=== PATIENT | male | born 1965 | race Caucasian/White ===

== ENCOUNTER → 2020-05-07 01:58 | Outpatient (CLI) | payer BC, SELFPAY ==
[2020-05-07 19:28] LABS: SARS-CoV-2 RNA PCR Negative
== END ==
PROVIDERS: PCP Family Medicine; Visit Provider Internal Medicine Gastroenterology
DX: Z01.812 Encounter for preprocedural laboratory examination (principal); Z20.822 Contact with and (suspected) exposure to COVID-19
CPT/HCPCS: C9803; U0003; U0005

== ENCOUNTER 2020-05-10 01:49 | Day surgery (SDC) | payer BC, SELFPAY ==
[2020-04-28 13:09] VITALS: BMI 27.6
[2020-05-10 09:45] VITALS: BP 143/88; PULSE 77; RESP 16; TEMP 36.7; O2SAT 95
[2020-05-10] MEDS: LACTATED RINGERS 1,000 ML 150 ML IV CONT (09:48)
--- NOTE | 2020-05-10 10:21 | WPDANESEPPF ---
Anes - Initial Pre Proc Eval Procedure: Operation Date: 05/10/20 11:00 Proposed Procedures p Screening Colonoscopy - Maximino Brownlee MD Date/Time: 05/10/20 10:21 Surgeon: Maximino Brownlee MD Pre Op Diagnosis: neoplasm screening Patient Data Age: 55 Gender: M Height: 5 ft 9 in Weight: 82.2 kg Last Vital Signs Temp 98.1 F 05/10/20 09:45 Pulse 77 05/10/20 09:45 Resp 16 05/10/20 09:45 BP 143/88 H 05/10/20 09:45 Pulse Ox 95 05/10/20 09:45 Allergies Allergy/AdvReac Type Severity Reaction Status Date / Time niacin Allergy Unknown Flushing Verified 05/10/20 09:43 Penicillins Allergy Unknown Skin Verified 05/10/20 09:43 Reaction Home Medications Medication Instructions Recorded Confirmed Type cetirizine 10 mg capsule 10 mg PO DAILY 03/18/19 04/28/20 History pantoprazole 20 mg tablet,delayed 20 mg PO QAM 03/18/19 04/28/20 History release atorvastatin 20 mg tablet 20 mg PO DAILY #90 tablet 09/15/19 04/28/20 Rx cholecalciferol (vitamin D3) 75 mcg PO DAILY 04/28/20 04/28/20 History lisinopril-hydrochlorothiazide 0.5 tablet PO DAILY 04/28/20 04/28/20 History multivit with min-folic acid 1 tablet PO DAILY 04/28/20 04/28/20 History [Multivitamin Gummies] Patient hx anesthesia problems: none Family hx anesthesia problems: none PMFSH Past Medical History Medical History (Updated 05/10/20 @ 10:20 by Valdemar Tesfaye MD) Atypical chest pain thinks stress related; will have stress test in 4 days BMI 29.0-29.9,adult Essential (primary) hypertension Fracture of head of left femur Gastro-esophageal reflux disease with esophagitis Mixed hyperlipidemia Stomach ulcer Family History Family History Mother Hypertension Family history of elevated blood lipids Family history of hepatitis Diabetes mellitus Family history of kidney disease Family history of malignant neoplasm of breast in first degree relative Father Family history of elevated blood lipids Family history of cardiovascular disease Carcinoma of colon Hypertension Acute myocardial infarction Grandparent Diabetes mellitus Social History Social History Smoking status: Never smoker Alcohol intake: current Drinks per week: 5 Alcohol use details: infrequent alcohol consumption Living arrangements: with family Additional living arrangements comments: - Taylor, Daughter- Dayami 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 Gender identity (if verbalized by the patient): Male Spiritual care concerns: No Anes - Eval Final PreProcedure Day of Procedure 05/10/20 10:21 Patient weight: overweight Heart: regular rate and rhythm Lungs: clear to auscultation Airway: Mallampati scale class II Neurological: alert and oriented Last oral intake: >/= 8 hours ASA classification: III Emergent: no Anesthetic plan: proceed Anesthesia type and monitoring: general GIVS and standard monitoring Informed Consent: The patient's anesthetic plan and its attendant risks and benefits were discussed with the patient/family/POA. Questions were solicited and answers provided to the satisfaction of the patient/family/POA.
--- NOTE | 2020-05-10 11:11 | PM.HPGS ---
History of Present Illness History of Present Illness Consent: Risks, benefits, and alternatives have been discussed and questions answered. Patient agrees to proceed with procedure. Chief complaint: neoplasm screening Narrative: Bony Cee is a 55 year old male here for colon cancer screening. Several years ago he had a polyp removed Review of Systems Review of Systems: All systems reviewed & are unremarkable except as noted in HPI and below PMFSH Past Medical History Medical History Atypical chest pain thinks stress related; will have stress test in 4 days BMI 29.0-29.9,adult Essential (primary) hypertension Fracture of head of left femur Gastro-esophageal reflux disease with esophagitis Mixed hyperlipidemia Stomach ulcer Family History Family History Mother Hypertension Family history of elevated blood lipids Family history of hepatitis Diabetes mellitus Family history of kidney disease Family history of malignant neoplasm of breast in first degree relative Father Family history of elevated blood lipids Family history of cardiovascular disease Carcinoma of colon Hypertension Acute myocardial infarction Grandparent Diabetes mellitus Social History Social History Smoking status: Never smoker Alcohol intake: current Drinks per week: 5 Alcohol use details: infrequent alcohol consumption Living arrangements: with family Additional living arrangements comments: - Taylor, Daughter- Dayami 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 Gender identity (if verbalized by the patient): Male Spiritual care concerns: No Meds Home Medications and Allergies Home Medications Medication Instructions Recorded Confirmed Type cetirizine 10 mg capsule 10 mg PO DAILY 03/18/19 04/28/20 History pantoprazole 20 mg tablet,delayed 20 mg PO QAM 03/18/19 04/28/20 History release atorvastatin 20 mg tablet 20 mg PO DAILY #90 tablet 09/15/19 04/28/20 Rx cholecalciferol (vitamin D3) 75 mcg PO DAILY 04/28/20 04/28/20 History lisinopril-hydrochlorothiazide 0.5 tablet PO DAILY 04/28/20 04/28/20 History multivit with min-folic acid 1 tablet PO DAILY 04/28/20 04/28/20 History [Multivitamin Gummies] Allergies Allergy/AdvReac Type Severity Reaction Status Date / Time niacin Allergy Unknown Flushing Verified 05/10/20 09:43 Penicillins Allergy Unknown Skin Verified 05/10/20 09:43 Reaction Vital Signs Vital Signs - 24 hr 05/10/20 09:45 Temperature 36.7 C Pulse Rate 77 Respiratory Rate 16 Blood Pressure 143/88 H Pulse Oximetry 95 Exam Resp: Auscultation: clear to auscultation bilaterally Cardio: Rate: regular rate Rhythm: regular rhythm GI: GI Palp: Yes Soft to palpation and No Tenderness to palpation present (GI) Assessment and Plan Assessment and plan (1) Colon cancer screening: Code(s): Z12.11 - Encounter for screening for malignant neoplasm of colon Status: Acute Assessment and Plan: Colonoscopy with possible biopsy or polypectomy or cautery or injection of substances.
[2020-05-10 11:30] VITALS: BP 113/72; PULSE 67; RESP 16; O2SAT 94
[2020-05-10 11:40] VITALS: BP 148/88; PULSE 67; RESP 16; O2SAT 96
[2020-05-10 11:50] VITALS: BP 136/90; PULSE 66; RESP 20; O2SAT 99
== END 2020-05-10 12:06 | disposition home or self-care (01) ==
PROVIDERS: PCP Family Medicine; Visit Provider Internal Medicine Gastroenterology
PROC: 0DJD8ZZ Inspection of Lower Intestinal Tract, Via Natural or Artificial Opening Endoscopic (ICD-10-PCS; CPT 45378; principal; 2020-05-10 11:00)
DX: Z12.11 Encounter for screening for malignant neoplasm of colon (principal); Z86.010 Personal history of colon polyps; K57.30 Diverticulosis of large intestine without perforation or abscess without bleeding; I10 Essential (primary) hypertension; E78.2 Mixed hyperlipidemia; Z87.11 Personal history of peptic ulcer disease
CPT/HCPCS: 45378; J2704; J7120

== ENCOUNTER 2020-06-21 08:46 | Outpatient (CLI) | payer BC, SELFPAY ==
--- NOTE | 2020-07-05 11:48 | WPDHOMESLEEP ---
Sleep Study - Home Unattended Date of Study: 06/21/20 Ordering Provider: Hair Huber PA-C Interpreting Provider: Isa Davis MD Home Sleep Study Type: Apnea Link Air Height: 1.75 m Weight: 79.379 kg Body Mass Index: 25.8 Neck Circumference (inches): 14.5 Ideal: 8 Reason for Sleep Study Excessive sleepiness, especially in the evening, around 8 pm Sleep History Bony Cee is a 55-year-old man who occasionally snores ,and occasionally his snoring s loud enough that others complain about it. 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 He does not awaken at night with heartburn, belching or coughing. He does not awaken from sleep feeling short of breath. He does not have difficulty sleeping with a cold. He denies waking up gasping for breath at night. He occasionally has breathing problems at night observed by others. He does not sweat excessively at night or notice his heart pounding or beating irregularly at night. He rarely falls asleep during the day. He does not fall asleep involuntarily. He does not fall asleep while driving the car. He does not have loss of muscle tone with strong emotion. He does not have daytime difficulties due to excessive sleepiness. 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 He does not feel paralyzed on waking or falling asleep. He does not have vivid dreamlike scenes upon awakening or falling asleep. He does not feel afraid to go to sleep. He denies having nightmares. He occasionally remembers his dreams. He occasionally has racing thoughts. He does not feel sad or depressed. He rarely has anxiety. He does not have muscular tension. He does not notice part of his body jerking. He does not kick at night or have crawling or aching feelings in his legs. He does not have any kind of leg pain at night. He does not have morning jaw pain. He denies grinding his teeth during sleep. He is not bothered by pain during the day and is not awakened by pain at night. He does not wake up feeling stiff in the morning with sore achy muscles or pain in the neck and spine. He has fatigue in the evening only. Normal bedtime 10:30 p.m. falling asleep within 15 minutes, waking once at night to go to the bathroom. He stays awake for an hour or less. He wakes the morning at 5:00 a.m.. On the weekend, his schedule is the same. He estimates getting 6-7 hours of sleep at night. He sometimes takes a nap in the afternoon or evening. He sometimes feels refreshed after a 10 or 15 minute nap. Habits: Never smoked tobacco. No caffeine. Alcohol 2 or 3 beverages per week. [facility] Past Medical History Medical History Atypical chest pain thinks stress related; will have stress test in 4 days BMI 29.0-29.9,adult Essential (primary) hypertension Fracture of head of left femur Gastro-esophageal reflux disease with esophagitis Mixed hyperlipidemia Stomach ulcer Family History Family History Mother Hypertension Family history of elevated blood lipids Family history of hepatitis Diabetes mellitus Family history of kidney disease Family history of malignant neoplasm of breast in first degree relative Father Family history of elevated blood lipids Family history of cardiovascular disease Carcinoma of colon Hypertension Acute myocardial infarction Grandparent Diabetes mellitus Social History Social History Smoking status: Never smoker Alcohol intake: current Drinks per week: 5 Additional living arrangements comments: - Taylor, Daughter- Dayami 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 Gender identity (if verbalized by the patient): Male Spiritual care concerns: No Medications Home Medications Medication Instructions Recorded Confirmed Type cetirizine 10 m
[2020-07-05 11:58] VITALS: BMI 25.8
== END 2020-06-21 08:47 | disposition home or self-care (01) ==
LOC: ANHCSM 08:46
PROVIDERS: PCP Family Medicine; Visit Provider Physician Assistant
DX: G47.33 Obstructive sleep apnea (adult) (pediatric) (principal); G47.36 Sleep related hypoventilation in conditions classified elsewhere
CPT/HCPCS: 95806

== ENCOUNTER → 2020-07-21 00:47 | Outpatient (CLI) | payer BC, SELFPAY ==
[2020-07-21 17:41] LABS: SARS-CoV-2 RNA PCR Negative
== END ==
PROVIDERS: PCP Family Medicine; Visit Provider Internal Medicine Critical Care Medicine
DX: Z20.822 Contact with and (suspected) exposure to COVID-19 (principal)
CPT/HCPCS: C9803; U0003; U0005

== ENCOUNTER → 2020-08-10 02:22 | Outpatient (CLI) | payer BC, SELFPAY ==
[2020-08-12 08:32] LABS: SARS-CoV-2 RNA PCR Negative
== END ==
PROVIDERS: PCP Family Medicine; Visit Provider Internal Medicine Critical Care Medicine
DX: Z01.812 Encounter for preprocedural laboratory examination (principal); Z20.822 Contact with and (suspected) exposure to COVID-19
CPT/HCPCS: C9803; U0003; U0005

== ENCOUNTER → 2020-08-13 | Outpatient (CLI) | payer BC, SELFPAY ==
[2020-09-06 08:56] VITALS: BMI 25.8
--- NOTE | 2020-09-06 08:56 | WPDSLEEPSTUD ---
Sleep Study Date of Study: 08/13/20 Ordering Provider: Chase Ferguson MD Interpreting Physician: Isa Davis MD Sleep Study Type: CPAP Titration Height: 1.75 m Weight: 79.379 kg Body Mass Index: 25.8 Neck Circumference (inches): 16.5 Reason for Sleep Study This home sleep test using apnea link June 21, 2020 shows moderate sleep disordered breathing with an apnea-hypopnea index of 21, majority of the apneas were obstructive 76%, desaturation to 85% and 2 minutes spent below 88% with snoring. He had 21% of the apneas scored as central, 9 apneas total. He presents for a CPAP titration. Sleep History Bony Cee is a 55-year-old man who occasionally snores ,and occasionally his snoring s loud enough that others complain about it. He often falss asleep by 8:30 p.m. 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 He does not awaken at night with heartburn, belching or coughing. He does not awaken from sleep feeling short of breath. He does not have difficulty sleeping with a cold. He denies waking up gasping for breath at night. He occasionally has breathing problems at night observed by others. He does not sweat excessively at night or notice his heart pounding or beating irregularly at night. He rarely falls asleep during the day. He does not fall asleep involuntarily. He does not fall asleep while driving the car. He does not have loss of muscle tone with strong emotion. He does not have daytime difficulties due to excessive sleepiness. 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 He does not feel paralyzed on waking or falling asleep. He does not have vivid dreamlike scenes upon awakening or falling asleep. He does not feel afraid to go to sleep. He denies having nightmares. He occasionally remembers his dreams. He occasionally has racing thoughts. He does not feel sad or depressed. He rarely has anxiety. He does not have muscular tension. He does not notice part of his body jerking. He does not kick at night or have crawling or aching feelings in his legs. He does not have any kind of leg pain at night. He does not have morning jaw pain. He denies grinding his teeth during sleep. He is not bothered by pain during the day and is not awakened by pain at night. He does not wake up feeling stiff in the morning with sore achy muscles or pain in the neck and spine. He has fatigue in the evening only. Normal bedtime 10:30 p.m. falling asleep within 15 minutes, waking once at night to go to the bathroom. He stays awake for an hour or less. He wakes the morning at 5:00 a.m.. On the weekend, his schedule is the same. He estimates getting 6-7 hours of sleep at night. He sometimes takes a nap in the afternoon or evening. He sometimes feels refreshed after a 10 or 15 minute nap. Habits: Never smoked tobacco. No caffeine. Alcohol 2 or 3 beverages per week. [facility] Past Medical History Medical History (Updated 09/06/20 @ 09:14 by Isa Davis MD) Atypical chest pain thinks stress related; will have stress test in 4 days BMI 29.0-29.9,adult Essential (primary) hypertension Fracture of head of left femur Gastro-esophageal reflux disease with esophagitis Left hip pain Mixed hyperlipidemia Stomach ulcer Family History Family History Mother Hypertension Family history of elevated blood lipids Family history of hepatitis Diabetes mellitus Family history of kidney disease Family history of malignant neoplasm of breast in first degree relative Father Family history of elevated blood lipids Family history of cardiovascular disease Carcinoma of colon Hypertension Acute myocardial infarction Grandparent Diabetes mellitus Social History Social History Alcohol intake: current Drinks per week: 5 Alcohol use details: infrequent alcohol consumption Additional living arrangements comments: - K
== END | disposition home or self-care (01) ==
PROVIDERS: PCP Family Medicine; Visit Provider Family Medicine
DX: G47.33 Obstructive sleep apnea (adult) (pediatric) (principal)
CPT/HCPCS: 95811

== ENCOUNTER 2020-09-07 13:36 | Outpatient (CLI) | payer BC, OTHER, SELFPAY ==
--- NOTE | ~2020-09-07 | XR_ITS ---
EXAMINATION: XR lg joint inject/asp w image DATE: 09/07/2020 14:18 INDICATION: Left hip pain TECHNIQUE: A time-out was performed to verify the patient's name, date of , and procedure to b e performed. The procedure including the risks, benefits, and alternatives was discussed with the pat ient. Risks discussed included bleeding and infection. The patient understood the risks and agreed to proceed. The skin overlying the left hip joint was prepped and draped in usual sterile fashion. An esthetic was administered with 1% lidocaine subcutaneously. A 22 G needle was advanced under fluoros copic guidance into the joint. Injection of 1 mL of Omnipaque 240 confirmed intra-articular position of the needle. Subsequently, injectate consisting of left hip was instilled. Washout of contrast wa s seen confirming intra-articular administration. The needle was removed and the entry site was clean ed and dressed. There were no immediate complications. Fluoroscopy exposure time was 2.1 minutes. Th e total number of images was 2. Total DAP was 0.453 mGycm^2 FINDINGS: Real-time fluoroscopy demonstrates the needle in the left hip joint. Patient's pain prior t o procedure:04/28. Patient's pain following the procedure: 03/31. IMPRESSION: 1. Left hip injection of local anesthetic and steroid with decrease in the patient's presenting pain. Reviewed, dictated and finalized at location A. IMPRESSION: 1. Left hip injection of local anesthetic and steroid with decrease in the florentino ent's presenting pain.
== END 2020-09-07 13:37 | disposition home or self-care (01) ==
PROVIDERS: PCP Family Medicine; Visit Provider Orthopaedic Surgery
DX: M25.552 Pain in left hip (principal)
CPT/HCPCS: 20610; 77002; J3301; Q9966

== ENCOUNTER → 2020-12-29 09:22 | Outpatient (CLI) | payer BC, SELFPAY ==
[2020-12-29 18:11] LABS: SARS-CoV-2 RNA PCR Positive
== END ==
PROVIDERS: PCP Family Medicine; Visit Provider Family Medicine
DX: U07.1 COVID-19 (principal)
CPT/HCPCS: C9803; U0003; U0005

== ENCOUNTER 2021-11-05 08:40 | Emergency (ER) | payer BC, SELFPAY ==
--- NOTE | ~2021-11-05 | CT_ITS ---
EXAMINATION: CT cervical spine wo con DATE: 11/05/2021 09:48 INDICATION: Left neck pain radiating down the arm. TECHNIQUE: Computed tomography (CT) of the cervical spine was performed without intravenous contrast. Automated exposure control and iterative reconstruction technique were employed. The dose-length pro duct was 484.48 mGy-cm. COMPARISON: None FINDINGS: There is 9 degrees levocurvature of cervicothoracic spine. There is hypolordosis of cervica l spine. Vertebral body heights are normal. There is mildly decreased disc height at C5-C6 and modera tely decreased disc height at C6-C7. The following disc levels are specifically discussed: C2-C3: There is no uncovertebral joint osteoarthritis. There is severe bilateral facet joint osteoart hritis. There is no neural foraminal stenosis. There is no central canal stenosis. C3-C4: There is mild bilateral uncovertebral joint osteoarthritis. There is moderate right and mild l eft facet joint osteoarthritis. There is mild bilateral neural foraminal stenosis. There is no centra l canal stenosis. C4-C5: There is mild bilateral uncovertebral joint osteoarthritis. There is no facet joint osteoarthr itis. There is no neural foraminal stenosis. There is no central canal stenosis. C5-C6: There is mild bilateral uncovertebral joint osteoarthritis. There is moderate right facet join t osteoarthritis. There is mild bilateral neural foraminal stenosis. There is mild central canal sten osis. C6-C7: There is mild bilateral uncovertebral joint osteoarthritis. There is mild bilateral facet join t osteoarthritis. There is no neural foraminal stenosis. There is mild central canal stenosis. C7-T1: There is no uncovertebral joint osteoarthritis. There is severe right and mild left facet join t osteoarthritis. There is mild right neural foraminal stenosis. There is no central canal stenosis. IMPRESSION: 1. Moderate cervical spondylosis. Reviewed, dictated and finalized at location A.
--- NOTE | ~2021-11-05 | CT_ITS ---
EXAMINATION: CT thoracic spine wo con DATE: 11/05/2021 09:48 INDICATION: Midline back tenderness. TECHNIQUE: Computed tomography (CT) of the thoracic spine was performed without intravenous contrast. Automated exposure control and iterative reconstruction technique were employed. The dose-length pro duct was 1202.24 mGy-cm. COMPARISON: None FINDINGS: A calcified right lung nodule and calcified right hilar lymph nodes are consistent with old granulomatous disease. There is a 3.6 cm cyst in left kidney. There is 4 degrees dextrocurvature of upper thoracic spine. There is mild chronic anterior wedging of T11 and T12 vertebral bodies. Interve rtebral disc heights are normal. There are endplate osteophytes at most levels. There is multilevel m ild facet joint osteoarthritis. On the right, there is moderate facet joint osteoarthritis at T2-T3. On the right, there is mild neural foraminal stenosis at T1-T2 and moderate neural foraminal stenosis at T2-T3. No central canal stenosis. IMPRESSION: 1. Mild thoracic spondylosis. Reviewed, dictated and finalized at location A.
[2021-11-05 08:46] VITALS: BP 156/86; PULSE 58; RESP 14; TEMP 36.2; O2SAT 97
--- NOTE | 2021-11-05 09:15 | ED.EXTPRO ---
HPI - Extremity Problem General Chief complaint: Extremity Problem,Nontraumatic Stated complaint: Shoulder pain with numbness to left arm Time Seen by Provider: 11/05/21 08:57 Source: patient Mode of arrival: ambulatory Limitations: no limitations History of Present Illness HPI Narrative: Patient is a 56 y/o male who presents to the ED with c/o left upper back/shoulder pain. Patient reports he slept on his left shoulder wrong a few weeks ago. He has had intermittent pain in his left scapular/shoulder/neck region, with tingling down his left arm. He states the pain seems to be worse in the mornings after some sort of identifiable aggravating activity the night before. This morning, he woke up with worsening pain after playing [employer] last night. He tried taking 2 Advil at home without relief, which prompted his presentation. Denies any other direct injury. Pain worse with range of motion of left shoulder and turning head/neck to the left. He denies any focal weakness. Denies numbness. He has been able to use his left arm and hand. Denies dropping things. He denies any chest pain or difficulty breathing. Related Data Home Medications Medication Instructions Recorded Confirmed cetirizine 10 mg capsule (Zyrtec) 10 mg PO DAILY 03/18/19 10/18/21 cholecalciferol (vitamin D3) 75 75 mcg PO DAILY 04/28/20 10/18/21 mcg (3,000 unit) tablet multivitamin with minerals-folic 1 tablet PO DAILY 04/28/20 10/18/21 acid 200 mcg chewable tablet (Multivitamin Gummies) Allergies Allergy/AdvReac Type Severity Reaction Status Date / Time niacin Allergy Unknown Flushing Verified 10/18/21 14:55 Penicillins Allergy Unknown Skin Verified 10/18/21 14:55 Reaction Review of Systems Review of Systems: CONSTITUTIONAL: Denies fever, chills, or sweats. CARDIOVASCULAR: Denies chest pain. RESPIRATORY: Denies cough or dyspnea. GASTROINTESTINAL: Denies abdominal pain, nausea, vomiting. MUSCULOSKELETAL: Reports left-sided neck/shoulder/upper back pain. NEUROLOGIC: Reports tingling down LUE. Denies numbness or focal weakness. All systems reviewed & are unremarkable except as noted in HPI and below PMFSH Past Medical History Medical History Arthritis of left hip Atypical chest pain thinks stress related; will have stress test in 4 days BMI 29.0-29.9,adult Essential (primary) hypertension Fracture of head of left femur Gastro-esophageal reflux disease with esophagitis Left hip pain Mixed hyperlipidemia Stomach ulcer Surgical History Surgical History History of colonoscopy Family History Family History Mother Hypertension Family history of elevated blood lipids Family history of hepatitis Diabetes mellitus Family history of kidney disease Family history of malignant neoplasm of breast in first degree relative Father Family history of elevated blood lipids Family history of cardiovascular disease Carcinoma of colon Hypertension Acute myocardial infarction Grandparent Diabetes mellitus Social History Social History Smoking status: Never smoker Alcohol intake: current Drinks per week: 5 Alcohol use details: infrequent alcohol consumption Additional living arrangements comments: - Taylor, Daughter- Dayami 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 Gender identity (if verbalized by the patient): Male Spiritual care concerns: No Exam Narrative: GENERAL: Well appearing, well-nourished, non-toxic, in no acute distress. HEAD: Normocephalic, atraumatic. EYES: PERRL/EOMI, conjunctivae clear bilaterally. No nystagmus. NECK: Supple. No adenopathy, no masses. No significant midline cervical spinal tenderness. Tenderness along L scot
--- NOTE | 2021-11-05 09:17 | ECG_ITS ---
Measurements Intervals [place] Rate: 58 P: 6 CT: 147 QRS: -15 QRSD: 102 T: 14 QT: 409 QTc: 404 Interpretive Statements SINUS BRADYCARDIA CONSIDER INFERIOR INFARCT, AGE INDETERMINATE ABNORMAL ECG NO PREVIOUS ECG AVAILABLE FOR COMPARISON Electronically Signed On 11-05-2021 10:19:12 CDT by Hernan Olivia D.O.
== END 2021-11-05 11:47 | disposition home or self-care (01) ==
PROVIDERS: Emergency Provider General Practice; PCP Emergency Medicine
DX: M54.12 Radiculopathy, cervical region (principal); I10 Essential (primary) hypertension; E78.2 Mixed hyperlipidemia; K21.9 Gastro-esophageal reflux disease without esophagitis
CPT/HCPCS: 72125; 72128; 93005; 99284

== ENCOUNTER 2021-11-21 10:21 | Outpatient (CLI) | payer BC, SELFPAY ==
[2021-11-21 20:09] LABS: LDL Cholesterol Direct 106 mg/dL
[2021-11-21 20:14] LABS: Alanine Aminotransferase 43 U/L (6-50); Albumin Level 4.4 g/dL (3.5-5.1); Alkaline Phosphatase 86 U/L (38-126); Anion Gap 10 mmol/L (8-16); Aspartate Amino Transferase 43 U/L (17-59); Bilirubin,Total 0.9 mg/dL (0.2-1.3); Blood Urea Nitrogen 20 mg/dL (9-20); Calcium 9.2 mg/dL (8.4-10.2); Carbon Dioxide 27 mmol/L (22-30); Chloride 100 mmol/L (98-107); Cholesterol 167 mg/dL (0-200); Estimated Glomerular Filt Rate > 60; Glucose 93 mg/dL (65-110); HDL Direct 42 mg/dL; Potassium 4.2 mmol/L (3.4-5.0); Sodium 137 mmol/L (137-145); Triglycerides 103 mg/dL (<150)
[2021-11-21 21:23] LABS: Hemoglobin A1C 5.2 % (<5.7)
[2021-11-21 21:26] LABS: Basophils Absolute Auto 0.1 K/mm3 (0.0-0.1); Basophils Percent Auto 1.2 % (0.2-1.2); Eosinophils Absolute Auto 0.3 K/mm3 (0-0.3); Eosinophils Percent Auto 3.9 % (0-4.4); Hematocrit 53.7 % (42.0-52.0); Hemoglobin 18.1 g/dL (14.0-18.0); Immature Granulocyte Absolute 0.04 K/mm3 (0.00-0.031); Immature Granulocyte Percent A 0.5 % (0-0.5); Lymphocytes Absolute Auto 1.22 K/mm3 (0.9-3.2); Lymphocytes Percent Auto 16.2 % (18.3-44.2); Mean Corpuscular HGB Conc 33.7 g/dl (32-36); Mean Corpuscular Hemoglobin 31.3 pg (26-34); Mean Corpuscular Volume 92.7 fl (80-100); Monocytes Absolute Auto 0.7 K/mm3 (0.1-0.6); Monocytes Percent Auto 9.3 % (2.6-8.5); Neutrophils Absolute Auto 5.2 K/mm3 (1.3-6.7); Neutrophils Percent Auto 68.9 % (45.5-73.1); Platelet Count Result 227 k/mm3 (150-375); Red Blood Count 5.79 M/mm3 (4.6-6.20); Red Cell Distribution Width 12.3 % (11.5-14.5); White Blood Count 7.5 K/mm3 (4.5-10.0)
== END 2021-11-21 10:22 | disposition home or self-care (01) ==
LOC: ANHGOSHLAB 10:22
PROVIDERS: PCP Family Medicine; Visit Provider Physician Assistant
DX: E78.5 Hyperlipidemia, unspecified (principal); G47.23 Circadian rhythm sleep disorder, irregular sleep wake type; Z79.899 Other long term (current) drug therapy; K21.9 Gastro-esophageal reflux disease without esophagitis; E16.2 Hypoglycemia, unspecified; Z12.5 Encounter for screening for malignant neoplasm of prostate
CPT/HCPCS: 36415; 80053; 80061; 83036; 84153; 84443; 85025; G0103

== ENCOUNTER → 2021-11-21 14:56 | Outpatient (CLI) | payer BC, SELFPAY ==
--- NOTE | ~2021-11-21 | MR_ITS ---
EXAMINATION: MR cervical spine wo con DATE: 11/21/2021 15:56 INDICATION: Neck pain. Cervical radiculopathy. Left shoulder and arm numbness. TECHNIQUE: Magnetic resonance imaging (MRI) of the cervical spine was performed without intravenous c ontrast. Sequences included sagittal T2-weighted FSE, sagittal T2-weighted FS FSE, sagittal T1-weight ed FSE, axial MERGE, and axial T2-weighted FSE. COMPARISON: Cervical spine 11/05/2021 FINDINGS: There is 9 degrees levocurvature of cervicothoracic spine. There is mild kyphosis of cervic al spine. Vertebral body heights are normal. There is mildly decreased disc height at C4-C5 and moder ately decreased disc height at C5-C6 and C6-C7. The spinal cord signal intensity is normal. The follo wing disc levels are specifically discussed: C2-C3: The disc does not extend beyond the endplate margin. There is no uncovertebral joint osteoarth ritis. There is moderate bilateral facet joint osteoarthritis. There is mild bilateral neural foramin al stenosis. There is no central canal stenosis. C3-C4: The disc does not extend beyond the endplate margin. There is no uncovertebral joint osteoarth ritis. There is moderate bilateral facet joint osteoarthritis. There is mild bilateral neural foramin al stenosis. There is no central canal stenosis. C4-C5: The disc does not extend beyond the endplate margin. There is mild left uncovertebral joint os teoarthritis. There is mild bilateral facet joint osteoarthritis. There is mild left neural foraminal stenosis. There is no central canal stenosis. C5-C6: The disc is bulging. There is moderate bilateral uncovertebral joint osteoarthritis. There is mild right facet joint osteoarthritis. There is mild bilateral neural foraminal stenosis. There is mi ld central canal stenosis with ventral indentation of the spinal cord. C6-C7: The disc is bulging with superimposed left central and foraminal zone extrusion. There is mild bilateral uncovertebral joint osteoarthritis. There is moderate right and mild left facet joint oste oarthritis. There is mild right and moderate left neural foraminal stenosis. There is mild central ca nal stenosis. There is severe stenosis of left lateral recess. C7-T1: There is a central protrusion. There is no uncovertebral joint osteoarthritis. There is mild b ilateral facet joint osteoarthritis. There is no neural foraminal stenosis. There is no central canal stenosis. IMPRESSION: 1. Moderate cervical spondylosis. Of note, an extrusion at C6-C7 causes severe stenosis of left later al recess and moderate stenosis of left neural foramen. Reviewed, dictated and finalized at location B. IMPRESSION: 1. Moderate cervical spondylosis. Of note, an extrusion at C6-C7 causes severe stenosis of left lateral recess and moderate stenosis of left neural foramen.
== END ==
PROVIDERS: PCP Family Medicine; Visit Provider Family Medicine
DX: M47.23 Other spondylosis with radiculopathy, cervicothoracic region (principal); M48.03 Spinal stenosis, cervicothoracic region
CPT/HCPCS: 72141

== ENCOUNTER 2021-12-01 16:26 | Outpatient (CLI) | payer BC, SELFPAY ==
--- NOTE | ~2021-12-01 | XR_ITS ---
EXAMINATION: XR cervical spine 4-5V DATE: 12/01/2021 16:54 INDICATION: Neck pain. TECHNIQUE: 6 views of cervical spine including flexion and extension views were obtained. COMPARISON: CT cervical spine 11/05/2021 FINDINGS: There is hypolordosis of cervical spine. There is no abnormal motion with flexion or extens ion. There is 6 degrees levocurvature of cervical spine. Vertebral body heights are normal. There is mildly decreased disc height at C5-C6 and moderately decreased disc height at C6-C7. At C5-C6, there is moderate bilateral uncovertebral joint osteoarthritis. There is multilevel mild to moderate facet joint osteoarthritis. There is mild central canal stenosis at C5-C6 and C6-C7. IMPRESSION: 1. Moderate cervical spondylosis. Reviewed, dictated and finalized at location A.
== END 2021-12-01 16:27 | disposition home or self-care (01) ==
LOC: ANHIMG 16:28
PROVIDERS: PCP Family Medicine; Visit Provider Neurological Surgery
DX: M47.812 Spondylosis without myelopathy or radiculopathy, cervical region (principal); M48.02 Spinal stenosis, cervical region
CPT/HCPCS: 72050

== ENCOUNTER 2021-12-21 12:59 | Outpatient (CLI) | payer BC, SELFPAY ==
--- NOTE | 2021-12-21 13:16 | ECG_ITS ---
Measurements Intervals [place] Rate: 77 P: 66 AL: 143 QRS: -5 QRSD: 98 T: 52 QT: 357 QTc: 405 Interpretive Statements SINUS RHYTHM WITH MARKED SINUS ARRHYTHMIA BASELINE WANDER- I, II, V4 BORDERLINE ECG COMPARED TO ECG 11/05/2021 09:58:31 SINUS RHYTHM NOW PRESENT SINUS ARRHYTHMIA NOW PRESENT Electronically Signed On 12-21-2021 13:30:56 CDT by Hernan Olivia D.O.
[2021-12-21 13:20] LABS: Basophils Absolute Auto 0.1 K/mm3 (0.0-0.1); Basophils Percent Auto 1.1 % (0.2-1.2); Hematocrit 48.6 % (42.0-52.0); Immature Granulocyte Absolute 0.38 K/mm3 (0.00-0.031); Lymphocytes Absolute Auto 1.79 K/mm3 (0.9-3.2); Lymphocytes Percent Auto 14.2 % (18.3-44.2); Mean Corpuscular Hemoglobin 31.4 pg (26-34); Mean Corpuscular Volume 89.7 fl (80-100); Monocytes Absolute Auto 0.7 K/mm3 (0.1-0.6); Monocytes Percent Auto 5.9 % (2.6-8.5); Neutrophils Absolute Auto 9.5 K/mm3 (1.3-6.7); Neutrophils Percent Auto 75.8 % (45.5-73.1); Platelet Count Result 299 k/mm3 (150-375); Red Blood Count 5.42 M/mm3 (4.6-6.20); Red Cell Distribution Width 12.9 % (11.5-14.5); White Blood Count 12.6 K/mm3 (4.5-10.0)
[2021-12-21 13:36] LABS: Alanine Aminotransferase 39 U/L (6-50); Albumin Level 4.5 g/dL (3.5-5.1); Alkaline Phosphatase 77 U/L (38-126); Anion Gap 14 mmol/L (8-16); Aspartate Amino Transferase 27 U/L (17-59); Bilirubin,Total 0.8 mg/dL (0.2-1.3); Blood Urea Nitrogen 24 mg/dL (9-20); Calcium 9.4 mg/dL (8.4-10.2); Carbon Dioxide 25 mmol/L (22-30); Chloride 98 mmol/L (98-107); Estimated Glomerular Filt Rate > 60; Glucose 100 mg/dL (65-110); Potassium 3.8 mmol/L (3.4-5.0); Sodium 137 mmol/L (137-145)
== END 2021-12-21 13:00 | disposition home or self-care (01) ==
LOC: ANHLAB 13:00
PROVIDERS: PCP Family Medicine; Visit Provider Neurological Surgery
DX: Z01.818 Encounter for other preprocedural examination (principal); R94.31 Abnormal electrocardiogram [ECG] [EKG]
CPT/HCPCS: 36415; 80053; 85025; 93005

== ENCOUNTER 2021-12-22 09:31 | Outpatient (CLI) | payer BC, SELFPAY ==
[2021-12-22 18:50] LABS: Hematocrit 48.1 % (42.0-52.0); Hemoglobin 15.8 g/dL (14.0-18.0); Mean Corpuscular HGB Conc 32.8 g/dl (32-36); Mean Corpuscular Hemoglobin 30.9 pg (26-34); Mean Corpuscular Volume 93.9 fl (80-100); Mean Platelet Volume 9.3 fl (7.4-10.4); Platelet Count Result 254 k/mm3 (150-375); Red Blood Count 5.12 M/mm3 (4.6-6.20); Red Cell Distribution Width 13.2 % (11.5-14.5); White Blood Count 11.6 K/mm3 (4.5-10.0)
== END 2021-12-22 09:32 | disposition home or self-care (01) ==
LOC: ANHGOSHLAB 09:35
PROVIDERS: PCP Family Medicine; Visit Provider Family Medicine
DX: D75.1 Secondary polycythemia (principal)
CPT/HCPCS: 36415; 85027

== ENCOUNTER 2021-12-28 00:49 | Day surgery (SDC) | payer BC, SELFPAY ==
[2021-12-22 15:11] VITALS: BMI 27.3
--- NOTE | 2021-12-22 15:17 | PC.NURSE ---
Report to the Outpatient Waiting Room, entrance under the green pavilion located off [facility], at time 0600 on date 12/28/21. Planned Procedure Time: 0730. Time changes happen often and if your time is changed the preop area will call you the afternoon before. - You and your visitor will be asked to self-screen and do not enter if you have any COVID symptoms. - We encourage only one visitor and NO visitors under age 16 are allowed at this time. Your visitor will receive communication by the phone number that is given day of service. - The patient visitor is requested to social distance or may leave the building when not with patient due to restrictions. - A mask is OPTIONAL within the hospital. Patients may have clear liquids (water, carbonated beverages, clear teas, apple juice) until 3 hours prior to surgery with a maximum of 20 ounces. - No food from midnight until time of surgery Take the following medications with a SIP of water the morning of surgery: PREDNISONE, GABAPENTIN Medications to discontinue per physician: VITAMINS Date to take last dose: 12/24/21 Please no make-up, nail khmer, hairspray, perfume, deodorant, or body powder the day of surgery. No jewelry (including any body piercings) or valuables the day of surgery, leave them at home. Please take a shower or bath the night before, or the morning of, surgery with an antibacterial soap. Wear comfortable, loose fitting clothing. - Jewelry must be removed prior to entering the operating room. Rings and piercings that are not removed may be cut off. - The hospital will not accept responsibility for valuables. - Please leave all valuables, including medications, at home the day of surgery. If you are going home after surgery, a licensed regional dedicated truck driver must drive you home. - NO public transportation without another adult. - We recommend that an adult stay with you for 24 hours following discharge. - We also recommend that you do not drive, make important decision, drink alcoholic beverages, or take any drugs that were not prescribed by your health care provider for at least 24 hours after your discharge time. Follow any additional instructions given to you from your surgeon. If you or anyone in your household have experienced Covid symptoms in the past week, please notify your surgeon or the nurse liaison at the phone number below for possible testing. Telephone instructions given to PT - DA WILEY and asked if any additional questions and then verbalized understanding. Patient advised to call surgeon office or pre surgery nurse liaison [phone] if any additional questions.
[2021-12-28] VITALS (16 sets, daily range): BP systolic 106–144; BP diastolic 56–82; PULSE 71–111; RESP 12–20; TEMP 36.2–36.6; O2SAT 89–98; BMI 31.8
--- NOTE | ~2021-12-28 | XR_ITS ---
EXAMINATION: XR fluoroscopy no charge DATE: 12/28/2021 7:40 ROBOTICS SYSTEMS ENGINEER INDICATION: CERVICAL DISCECTOMY AND FUSION C5, C6, C7 . TECHNIQUE: 3 fluoroscopic images of the cervical spine were obtained during cervical discectomy and f usion C5-C7 performed by the surgeon. I was not present in the operating room. Fluoroscopy exposure t norma was 22.8 seconds. Air Kerma 3.6139 mGy. DAP 0.0716 mGym2. COMPARISON: X-ray C-spine 12/01/2021 FINDINGS: A temperature probe terminates in the posterior oropharynx. Partially visualized endotracheal and christine ogastric tubes. ACDF hardware spanning C5-C7, in good position. IMPRESSION: Fluoroscopic documentation of cervical discectomy and fusion of C5-C7. Please refer to the operative note for complete procedural details . Reviewed, dictated and finalized at location K. TICS SYSTEMS ENGINEER IMPRESSION: Fluoroscopic documentation of cervical discectomy and fusion of C5-C7. Please r efer to the operative note for complete procedural details .
--- NOTE | 2021-12-28 07:13 | WPDANESEPPF ---
Anes - Initial Pre Proc Eval Procedure: Operation Date: 12/28/21 07:30 Proposed Procedures p C5-6, C6-7 Anterior Cervical Discectomy and Fusion with Allograft and Plating - Fabrizio Carbajal M.D. Date/Time: 12/28/21 07:13 Surgeon: Fabrizio Carbajal M.D. Pre Op Diagnosis: cervical spondylosis with radiculopathy Patient Data Age: 56 Gender: M Height: 1.75 m Weight: 83.91 kg Allergies Allergy/AdvReac Type Severity Reaction Status Date / Time niacin Allergy Unknown Flushing Verified 12/22/21 15:09 Penicillins Allergy Unknown Skin Verified 12/22/21 15:09 Reaction Home Medications Medication Instructions Recorded Confirmed Type cetirizine 10 mg capsule (Zyrtec) 10 mg PO DAILY 03/18/19 12/22/21 History cholecalciferol (vitamin D3) 75 75 mcg PO DAILY 04/28/20 12/22/21 History mcg (3,000 unit) tablet multivitamin with minerals-folic 1 tablet PO DAILY 04/28/20 12/22/21 History acid 200 mcg chewable tablet (Multivitamin Gummies) blood sugar diagnostic (Blood #50 ea 12/13/20 12/01/21 Rx Glucose Test strips) blood-glucose meter #1 ea 12/13/20 12/01/21 Rx lancets (Accu-Chek Softclix #100 ea 12/13/20 12/01/21 Rx Lancets) atorvastatin 20 mg tablet See Rx Instructions .Route 10/03/21 12/22/21 Rx .COMPLEX #90 tabs irbesartan 300 1 tablet PO DAILY #90 tabs 10/26/21 12/22/21 Rx mg-hydrochlorothiazide 12.5 mg tablet gabapentin 300 mg capsule 300 mg PO TID #60 caps 12/16/21 12/22/21 Rx prednisone 10 mg tablet See Rx Instructions PO DAILY #42 12/16/21 12/22/21 Rx tabs Patient hx anesthesia problems: none Family hx anesthesia problems: none Results Review: All pre-operative results and documents have been reviewed as part of the pre-operative evaluation. [facility] Past Medical History Medical History Arthritis of left hip Atypical chest pain thinks stress related; will have stress test in 4 days Benign neoplasm of colon, unspecified BMI 29.0-29.9,adult Essential (primary) hypertension Fracture of head of left femur Gastro-esophageal reflux disease with esophagitis Left hip pain Mixed hyperlipidemia Other and unspecified hyperlipidemia Other snf (current) drug therapy Panic disorder without agoraphobia Seasonal allergies Stomach ulcer Ulcer of esophagus with bleeding Surgical History Surgical History History of colonoscopy Family History Family History Mother Hypertension Family history of elevated blood lipids Family history of hepatitis Diabetes mellitus Family history of kidney disease Family history of malignant neoplasm of breast in first degree relative Father Family history of elevated blood lipids Family history of cardiovascular disease Carcinoma of colon Hypertension Acute myocardial infarction Grandparent Diabetes mellitus Social History Social History Smoking status: Never smoker Alcohol intake: current Drinks per week: 5 Alcohol use details: 2/MONTH Substance use: never Substance use type: does not use Living arrangements: with family Additional living arrangements comments: - [place], Daughter- Dayami Additional occupation/education comments: [employer]- [employer] Gender identity (if verbalized by the patient): Male Spiritual care concerns: No Anes - Eval Final PreProcedure Day of Procedure 12/28/21 07:13 Patient weight: normal Heart: regular rate and rhythm Lungs: clear to auscultation Airway: Mallampati scale class II Neurological: alert and oriented Last oral intake: >/= 8 hours ASA classification: III Emergent: no Anesthetic plan: proceed Anesthesia type and monitoring: general ETT and standard monitoring Results Review: All pre-operativ
--- NOTE | 2021-12-28 07:27 | WPDHPUPDATE1 ---
History and Physical Update Update Date/Time: 12/28/21 07:27 History and Physical has been reviewed, including an updated exam of the patient. There are NO changes in the patient's condition. Risks, benefits, and alternatives have been discussed and questions answered. Patient agrees to proceed with procedure.
[2021-12-28] MEDS: LACTATED RINGERS 1,000 ML 30 ML IV CONT ×2 (07:33→11:37)
[2021-12-28] MEDS: ceFAZolin 2 GM/D5W 50 ML 2 GM/50 ML BAG IVPB (07:35)
[2021-12-28] MEDS: BUPIVACAINE/EPINEPHRINE 0.25% 50 ML VIAL 10 ML INFILTRATE (08:26)
--- NOTE | 2021-12-28 11:51 | W.PM.PROC2 ---
Procedure Note - Detailed Date of Procedure 12/28/21 Pre-op Diagnosis cervical spondylosis with radiculopathy Post-op Diagnosis Same Procedure Performed Cervical 5 6 and cervical 6 7 anterior cervical diskectomies, allograft fusion, anterior cervical plating. Surgeon Fabrizio Carbajal M.D. Anesthesia General Description of Procedure The patient was taken to the operating room and in the supine position underwent smoothly induced general anesthesia via endotracheal tube. Bradly hose and sequential stockings were placed. His head was position on a horseshoe head neck surgeon with a posterior cervical spine support. He received 2 g of IV Ancef and 12 mg of IV Decadron preoperatively. The anterior portion of his neck was scrubbed with chlorhexidine and wiped with alcohol. The C-arm was brought into place and a skin incision was marked centered over the C5-6 and C6-7 levels. The anterior neck was prepped and draped in the usual fashion. The area the incision was infiltrated with 10 cc of 0.25% Marcaine with [id number] epinephrine. An incision was made beginning in the midline and curving to the right. The dissection was carried down sharply through the platysma. The platysma was undermined with blunt dissection. A self-retaining retractor was applied. The anteromedial border of the sternocleidomastoid was defined and a plane was developed deeply just medial to the carotid sheath to the anterior cervical spine. Prevertebral fascia was cleared using a peanut. A bent spinal needle was placed in the C5-6 disc space and the C-arm was used to confirm this level. The midline of C5-6 and C6-7 were marked using the Bovie. The longus colli were reflected laterally using the Bovie and elevators. With this the Shadow Line retractor system was applied. The anterior disc spaces were incised using a 15 blade. Ventral endplate spurs were removed using the Leksell rongeur. Disc material and endplate was mobilized using curettes and removed. The anterior endplates were shaved back using a drill. The C6-7 disc space was treated 1st. Central distracting posts were placed in the midline of the body of C6 and C7. Gentle distraction was applied across the segment. The operating microscope sent brought into the field for microscopic dissection. The posterior endplates were thinned using a drill and removed using a Kerrison punch. The posterior longitudinal ligament was opened. A fairly large disc herniation was identified to the patient's left and mobilized using hooks and removed. It was then possible to easily palpate 100 to the foramen and around the canal with a nerve hook revealing no residual disc herniation, nerve root impingement, or spinal canal stenosis. The endplates were curetted thoroughly and cleared of all soft tissue and cartilage. The disc space was sized and an 8 mm tricortical structural iliac crest allograft was selected. This was trimmed to size and tapped into the disc space snugly. The C7 distracting post was removed. Attention was then turned to the C5-6 disc space where the process was repeated. The posterior endplate was thinned on the right side and removed. A foraminotomy was performed on the right side. The posterior longitude ligament was open and a nerve hook was used to palpate out both foramen and around the canal revealed no reason we will stenosis. The endplates were curetted. The disc space was sized. Another 8 minutes a meter allograft was tapped into this disc space not James and the distracting apparatus was removed. A Synthes small stature plate was then sized. A 37 mm 2 level plate was positioned and secured using 6 4.0 x 14 mm screws. The plate was a just a refuse screws were positioned and so I used 2 rescue screws on the left at C5 C6. All screws entered with excellent purchase. Six central locking screws were applied. A C-arm image at this point with AP and lateral views confirmed good position of the plate and screws in go
--- NOTE | 2021-12-28 12:09 | SUR.PHASEI ---
1209: Simple mask removed.
[2021-12-28] MEDS: fentaNYL CITRATE INJ (*CRX) 100 MCG/2 ML VIAL 25 MCG IV PUSH ×4 (12:42→12:51)
--- NOTE | 2021-12-28 13:16 | SUR.PHASEI ---
Addendum entered by Gibson Gunderson RN 12/28/21 13:22: holding pattern at 1300 Original Note: pt is in stable condition. we are holding pt in outpt room 17 until room upstairs is available.
--- NOTE | 2021-12-28 15:27 | ADMGEN ---
This patient, Bony Cee, was admitted to 2 Medical Room 260-01. Patient/family oriented to hospital policies and general routines including ID bracelet, bed and alarms, visiting hours, pain management, procedures, bathroom and other care routines, personal items, smoking policy, room service/diet, and visiting hours. Information on how to activate the Rapid Response Team has been discussed. Patient/Family are encouraged to report perceived risks to care and to ask questions if they do not understand what they are told or what they should do.
[2021-12-28] MEDS: HYDROcodone/acetaminophen (*CRX) 5-325 MG TABLET 1 TAB PO (15:43)
[2021-12-28] MEDS: KCL 20 MEQ/D5/0.45% SOD CHL 1,000 ML 100 ML IV CONT (15:53)
[2021-12-28] MEDS: GABAPENTIN 300 MG CAPSULE PO ×2 (16:59→20:59)
[2021-12-28] MEDS: DOCUSATE SODIUM 100 MG CAPSULE PO (20:59)
[2021-12-29 00:11] VITALS: BP 122/70; PULSE 79; RESP 20; TEMP 36.6; O2SAT 97
[2021-12-29 04:20] VITALS: BP 124/74; PULSE 63; RESP 20; TEMP 36.6; O2SAT 97
--- NOTE | 2021-12-29 05:48 | SUR.PHASEI ---
dr baldwin had asked for a less tall collor for pt. OR and central did not have. i called neuro office and let them know to tell dr baldwin that his origanal collar is still in place . office said they would notify and try to order. 12/28/21
[2021-12-29] MEDS: GABAPENTIN 300 MG CAPSULE PO (06:08)
--- NOTE | 2021-12-29 07:55 | WPDNEUROSGPN ---
Progress Note: A&P Assessment and Plan (1) Cervical spondylosis: Code(s): M47.812 - Spondylosis without myelopathy or radiculopathy, cervical region Status: Acute Plan Assessment: The patient is doing well. He he is ambulating, voiding, taking p.o. well and his pain is well controlled with oral medications. Time Spent With Patient Time: Recommendations: Will advance his activity this morning and make sure he is not feeling lightheaded anymore. He can then be discharged home. We reviewed his discharge instructions and medications. He will have hydrocodone and tizanidine to take on an as-needed basis. He will return to see me in the office in approximately 4-6 weeks with x-rays of the cervical spine. Will resume his routine home medications and avoid nonsteroidal anti-inflammatory medications. Subjective Date/time seen: 12/29/21 07:55 Interval history: The patient is doing well this morning. He notices that the discomfort in his left scapula and arm and forearm and hand is significantly improved. He has some residual pins and needles sensations in his left index finger. He he was up ambulating last night. He has been voiding in the urinal overnight. He is taking p.o. well. Exam Narrative: His incision and bandages clean and dry. He has residual weakness in his left triceps and finger extensors graded at 4/5. This is perhaps slightly improved compared to preop. Objective Data Vital Signs Vital Signs: Vital Signs - 24 hr 12/28/21 11:37 12/28/21 11:50 12/28/21 12:05 Temperature Pulse Rate 85 86 87 Respiratory Rate 12 18 18 Blood Pressure 117/71 124/69 112/61 Pulse Oximetry 98 97 98 Oxygen Delivery Simple Face Mask Simple Face Mask Simple Face Mask Oxygen Flow Rate 8 8 8 12/28/21 12:20 12/28/21 12:30 12/28/21 12:45 Temperature Pulse Rate 86 84 88 Respiratory Rate 20 15 12 Blood Pressure 114/56 L 114/67 117/72 Pulse Oximetry 93 94 95 Oxygen Delivery Nasal Cannula Nasal Cannula Nasal Cannula Oxygen Flow Rate 4 4 4 12/28/21 13:00 12/28/21 13:15 12/28/21 14:00 Temperature Pulse Rate 94 91 88 Respiratory Rate 20 16 14 Blood Pressure 108/67 111/69 110/65 Pulse Oximetry 96 96 98 Oxygen Delivery Nasal Cannula Nasal Cannula Nasal Cannula Oxygen Flow Rate 2 2 2 12/28/21 14:38 12/28/21 16:13 12/28/21 17:51 Temperature Pulse Rate 82 Respiratory Rate 14 Blood Pressure 106/67 Pulse Oximetry 98 Oxygen Delivery Nasal Cannula Room Air Room Air Oxygen Flow Rate 2 12/28/21 15:10 12/28/21 15:25 12/28/21 15:40 Temperature 97.9 F 97.9 F 97.3 F L Pulse Rate 92 91 93 Respiratory Rate 16 16 16 Blood Pressure 117/61 116/70 144/78 H Pulse Oximetry 94 89 L 96 Oxygen Delivery Oxygen Flow Rate 12/28/21 16:10 12/28/21 20:41 12/29/21 00:11 Temperature 97.1 F L 97.7 F 97.8 F Pulse Rate 111 H 94 79 Respiratory Rate 16 12 20 Blood Pressure 120/76 114/71 122/70 Pulse Oximetry 91 92 97 Oxygen Delivery Oxygen Flow Rate 12/29/21 04:20 Temperature 98 F Pulse Rate 63 Respiratory Rate 20 Blood Pressure 124/74 Pulse Oximetry 97 Oxygen Delivery Oxygen Flow Rate Intake/Output Intake/Output: Intake & Output 12/26/21 12/27/21 12/28/21 12/29/21 23:59 23:59 23:59 23:59 Intake Total 1040 50 Output Total 850 600 Balance 190 -550 Meds/Results Medications: Active Medications Generic Name Dose Route Start Last Admin Trade Name Freq PRN Reason Stop Dose Admin Hydrocodone Bitart/Acetaminophen 1 tab 12/28/21 14:40 12/28/21 15:43 Hydrocodone/Acetaminophen (*Crx) 5-325 Mg Tablet PO 1 tab Q4H PRN Administration Mild Pain (1-3) Hydrocodone Bitart/Acetaminophen 1 tab 12/28/21 14:40 Hydrocodone/Acetaminophen (*Crx) 10-325 Mg Tablet PO Q4H PRN Moderate Pain (4-6) Al Hydrox/Mg Hydrox/Simethicone 20 ml 12/28/21 14:40 Mag Hydrox/Al Hydrox/Simeth 30 Ml Udc PO Q4H PRN Indigestion/Heartburn Atorv
[2021-12-29] MEDS: LORATADINE 10 MG TABLET PO (08:11)
[2021-12-29] MEDS: IRBESARTAN 150 MG TABLET 300 MG PO (08:11)
[2021-12-29] MEDS: hydroCHLOROthiazide 12.5 MG CAPSULE PO (08:11)
[2021-12-29] MEDS: ATORVASTATIN 20 MG TABLET BY MOUTH (08:12)
[2021-12-29] MEDS: DOCUSATE SODIUM 100 MG CAPSULE PO (08:12)
[2021-12-29 10:08] VITALS: BP 104/59; PULSE 86; RESP 16; TEMP 36.3; O2SAT 95
--- NOTE | 2021-12-29 11:18 | PCOTNOTE ---
Attempted to see patient this am, however upon entering declined shaking head stating, Oh, he just fell asleep. Did not disturb patient for this reason.
== END 2021-12-29 13:29 | disposition home or self-care (01) ==
LOC: ANHSURGERY 11:48 → ANH2MED 14:42
PROVIDERS: PCP Family Medicine; Visit Provider Neurological Surgery
PROC: (CPT 63030; principal; 2021-12-28 07:30)
DX: M47.22 Other spondylosis with radiculopathy, cervical region (principal); M50.123 Cervical disc disorder at C6-C7 level with radiculopathy; I10 Essential (primary) hypertension; E78.2 Mixed hyperlipidemia; K21.9 Gastro-esophageal reflux disease without esophagitis; F41.0 Panic disorder [episodic paroxysmal anxiety]
CPT/HCPCS: 22551; 22552; 20931; 22845; 36415; 86850; 86900; 86901; 97116; 97161; 97165; 97535; 99199; A9270; J0690; J1100; J1170; J2250; J2370; J2405; J2704; J2710; J3010; J3480; J7120

== ENCOUNTER 2022-02-06 11:13 | Outpatient (CLI) | payer BC, SELFPAY ==
--- NOTE | ~2022-02-06 | XR_ITS ---
Cervical Spine: AP, lateral, open-mouth views Clinical History: Spondylosis COMPARISON: 12/01/2021 Findings: Patient is status post interval anterior fusion from C5 to C7, anterior plate and interlock ing screws. Probable disc spacer device is present at the associated interspaces. Remaining disc spac es are preserved. No fracture or subluxation. Impression: Status post anterior fusion from C5 through C7. Reviewed, dictated and finalized at location [] OMER SALES DISTRIBUTOR Impression: Status post anterior fusion from C5 through C7.
== END 2022-02-06 11:14 | disposition home or self-care (01) ==
PROVIDERS: PCP Family Medicine; Visit Provider Neurological Surgery
DX: M47.812 Spondylosis without myelopathy or radiculopathy, cervical region (principal); Z98.890 Other specified postprocedural states; Z98.1 Arthrodesis status
CPT/HCPCS: 72040

== ENCOUNTER 2022-04-11 09:09 | Outpatient (CLI) | payer BC, SELFPAY ==
--- NOTE | ~2022-04-11 | XR_ITS ---
XR_CERV2-3V_CR 04/11/2022 09:27 Indication: Spondylosis without myelopathy Procedure: 3 view cervical spine Comparison: 02/06/2022 and 12/01/2021 Findings: Status post anterior cervical fusion and discectomy at C5-C7. Normal cervical alignment. Mo derate facet hypertrophy. Odontoid process is normal. No prevertebral soft tissue swelling. Lung apic es are unremarkable. Impression: 1: Mild-moderate cervical spondylosis with fusion at C5-7. Reviewed, dictated and finalized at location L. OTHERAPIST Impression: 1: Mild-moderate cervical spondylosis with fusion at C5-7.
== END 2022-04-11 09:10 | disposition home or self-care (01) ==
PROVIDERS: PCP Family Medicine; Visit Provider Nurse Practitioner Adult Health
DX: M47.812 Spondylosis without myelopathy or radiculopathy, cervical region (principal)
CPT/HCPCS: 72040

== ENCOUNTER 2022-05-01 13:42 | Outpatient (CLI) | payer BC, SELFPAY | END 2022-05-01 13:43 | disposition home or self-care (01) | LOC: ANHAUDIO 13:43 | PROVIDERS: PCP Family Medicine; Visit Provider Physician Assistant | DX: H91.90 Unspecified hearing loss, unspecified ear (principal) | CPT/HCPCS: 99199 ==

== ENCOUNTER 2022-05-23 14:24 | Outpatient (CLI) | payer BC, SELFPAY | END 2022-05-23 14:25 | disposition home or self-care (01) | LOC: ANHAUDIO 14:24 | PROVIDERS: PCP Family Medicine; Visit Provider Physician Assistant | DX: H91.90 Unspecified hearing loss, unspecified ear (principal) | CPT/HCPCS: 92557; 92567 ==

== ENCOUNTER 2022-11-07 15:22 | Outpatient (CLI) | payer BC, SELFPAY ==
--- NOTE | ~2022-11-07 | XR_ITS ---
XR_CERV2-3V_CR DATE: 11/07/2022 15:40 INDICATION: Arthrodesis checkup TECHNIQUE: AP, open-mouth, lateral views COMPARISON: April 11, 2022 cervical spine FINDINGS: Status post anterior and interbody surgical fusion at C5-C7. C1 and C2 are normally aligned and the odontoid process is intact. No fracture or dislocation or prev ertebral soft tissue swelling. No hardware displacement or fracture is noted. C2-3 through C4-5 interspaces are well preserved. Mild degenerative change at the apophyseal joints. IMPRESSION: Status post anterior and interbody fusion at C5-C7; no significant change since April 11, 2022 Reviewed, dictated and finalized at Location A. Reviewed, dictated and finalized at location A.
== END 2022-11-07 15:23 | disposition home or self-care (01) ==
PROVIDERS: PCP Family Medicine; Visit Provider Neurological Surgery
DX: Z98.1 Arthrodesis status (principal); Z98.890 Other specified postprocedural states
CPT/HCPCS: 72040

== ENCOUNTER 2023-02-16 08:49 | Outpatient (CLI) | payer BC, SELFPAY | END 2023-02-16 08:50 | disposition home or self-care (01) | PROVIDERS: PCP Family Medicine; Visit Provider Physician Assistant | DX: H90.3 Sensorineural hearing loss, bilateral (principal) | CPT/HCPCS: 92557; 92567 ==

== ENCOUNTER 2023-07-11 15:30 | Outpatient (RCR) | payer BC, SELFPAY | END 2023-07-19 08:53 | disposition other institution (70) | LOC: ANHAUDASC 15:30 | PROVIDERS: PCP Family Medicine; Visit Provider Family Medicine | DX: Z46.1 Encounter for fitting and adjustment of hearing aid (principal) | CPT/HCPCS: 99199; V5261 ==

== ENCOUNTER 2024-07-01 07:46 | Emergency (ER) | payer BC, SELFPAY ==
--- NOTE | ~2024-07-01 | XR_ITS ---
EXAMINATION: XR elbow RT min 3V DATE: 07/01/2024 08:41 INDICATION: Limited range of motion at the right elbow post fall TECHNIQUE: Anteroposterior, two oblique and lateral views of the right elbow were obtained. COMPARISON: None. FINDINGS: Alignment is normal. No fracture or joint effusion. 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 Tiny misha icated heterotopic ossicle versus loose osteochondral body along the lateral margin of the posterior olecranon. Soft tissues are unremarkable. IMPRESSION: 1. 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 No joint effusion or acute osseous abnormality. Reviewed, dictated and finalized at location A. IMPRESSION: 1. 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 No joint effusion or acute osseous a bnormality.
--- NOTE | ~2024-07-01 | XR_ITS ---
EXAMINATION: XR shoulder RT min 2V DATE: 07/01/2024 08:41 INDICATION: Anterior right shoulder pain post fall TECHNIQUE: AP internally and externally rotated, AP oblique externally rotated and transscapular Y vi ews of the right shoulder were obtained. COMPARISON: None FINDINGS: Normal alignment. No fracture.Moderate right acromioclavicular osteoarthritis with small amount of h eterotopic ossification along the dorsal joint capsule. Mild glenohumeral osteoarthritis. C5-C7 anter ior spinal fusion with anterior plate and screw fixation. Right lung is clear with no pleural effusio n or pneumothorax. Soft tissues are unremarkable. IMPRESSION: Moderate right acromioclavicular and mild glenohumeral osteoarthritis. Reviewed, dictated and finalized at location A.
--- OUTSIDE RECORDS SUMMARY | 2024-07-01 07:49 | XMS_ITS | Clinical Summary ---
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 Gender Identity Not on file Sexual Orientation Not on file Plan of Treatment Health Maintenance Due Date Last Done Comments Colorectal Cancer Screening Colonoscopy (10 Years) 1963 Annual Physical 04/20/1966 Hepatitis C 04/20/1981 DTaP, Tdap and Td Vaccines ( 1 - Tdap) 04/20/1982 Pneumococcal Vaccine: 50+ Ye ars (1 of 1 - PCV) 04/20/2013 Zoster Vaccines (1 of 2) 04/20/2013 COVID-19 Vaccine ( - 2023-2 5 season) 2023 RSV Immunization or 60+ Years (1 - 1-dose 75+ series) 04/20/2038 Meningococcal B Vaccine Aged Out No l onger eligible based on patient's age to complete this topic Meningococcal Vaccine Aged Out No sue fifi eligible based on patient's age to complete this topic RSV Immunizations Under 20 Months Aged Out No longer eligible based on patient's age to complete this topic Insurance [facility] Advance Directives Documents on File Type Date Recorded Patient Travel Med Surg Rn Expl anation Legal Documents 07/20/2020 12:18 PM RECVD & CMPLTD ATTY REQ. FOR HB BILLS FOR SHANDA FOR PB [employer] Care Teams [employer] Relationship Specialty Start Date End Date Chase Ferguson MD [address] [place] [address] PCP - General FAMILY PRACTICE 03/10/19
--- OUTSIDE RECORDS SUMMARY | 2024-07-01 07:49 | XMS_ITS | Referral Summary ---
Author Organization [facility] Address [address] [place] [address] Care Team Providers Care Assistant Corporate Controller Name Role Phone Maggie Ferguson MD Primary Care Provider [phone] Allergies Active Allergy Reactions Criticality Noted Date Comments Niacin Sweating Low 05/14/2020 Penicillins Hives Medium 05/14/2020 Social History Tobacco Use Types Packs/Day Years Used Date Smoking Tobacco: Never Assessed Personal Safety Answer Date Recorded Getting School Help Needed Not on file 05/05 Sex and Gender Information Value Date Recorded Sex Assigned at Not on file 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
--- OUTSIDE RECORDS SUMMARY | 2024-07-01 07:49 | XMS_ITS | Clinical Summary ---
Author Organization [facility] Address [address] [place] [address] Care Team Providers Care Road Equipment Operator Name Role Phone Maggie Ferguson MD Primary Care Provider [phone] Allergies Active Allergy Reactions Criticality Noted Date Comments Niacin Sweating Low 05/14/2020 Penicillins Hives Medium 05/14/2020 Social History Tobacco Use Types Packs/Day Years Used Date Smoking Tobacco: Never Assessed Personal Safety Answer Date Recorded Getting School Help Needed Not on file 05/05 Sex and Gender Information Value Date Recorded Sex Assigned at Not on file 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
[2024-07-01 07:53] VITALS: BP 133/57; PULSE 75; RESP 16; TEMP 36.4; O2SAT 98
--- NOTE | 2024-07-01 08:08 | ED.GENADULT ---
HPI - General Adult General Chief complaint: Extremity Injury, Upper Stated complaint: fall, left shoulder, left elbow pain Time Seen by Provider: 07/01/24 08:00 Source: patient Mode of arrival: ambulatory History of Present Illness HPI narrative: 59 years old white male pulling a tree branch of the road, fell backward landed on the right upper extremity complaining of right shoulder and right elbow pain. He denies other injuries. Patient was able to walk and drove himself to the emergency room. Related Data Home Medications ?Medication ?Instructions ?Recorded ?Confirmed ?Last Taken ?Type cetirizine 10 mg capsule (Zyrtec) 10 mg PO DAILY 03/18/19 06/21/23 05/09/20 History cholecalciferol (vitamin D3) 75 75 mcg PO DAILY 04/28/20 06/21/23 05/09/20 History mcg (3,000 unit) tablet Allergies Allergy/AdvReac Type Severity Reaction Status Date / Time niacin Allergy Unknown Flushing Verified 06/25/24 15:25 Penicillins Allergy Unknown Skin Verified 06/25/24 15:25 Reaction Review of Systems Review of Systems: All systems reviewed & are unremarkable except as noted in HPI and below PMFSH Past Medical History Medical History Ulcer of esophagus with bleeding Seasonal allergies Panic disorder without agoraphobia 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 Other and unspecified hyperlipidemia Benign neoplasm of colon, unspecified Arthritis of left hip Left hip pain Atypical chest pain thinks stress related; will have stress test in 4 days BMI 29.0-29.9,adult Fracture of head of left femur Stomach ulcer Essential (primary) hypertension Gastro-esophageal reflux disease with esophagitis Mixed hyperlipidemia Surgical History Surgical History S/P cervical spinal fusion History of colonoscopy Family History Family History Mother Hypertension Family history of elevated blood lipids Family history of hepatitis Diabetes mellitus Family history of kidney disease Family history of malignant neoplasm of breast in first degree relative Father Family history of elevated blood lipids Family history of cardiovascular disease Carcinoma of colon Hypertension Acute myocardial infarction Grandparent Diabetes mellitus Social History Social History Smoking status: Never smoker Second hand tobacco smoke exposure: Yes Alcohol intake: current Drinks per week: 1 Alcohol use details: 2/MONTH Substance use: never Substance use type: does not use Lack of Transportation: No Lack of Food: Never True Current Housing: I Have Housing Concerned About Future Housing: No Difficulty Paying Gas/Electric Bills: No Difficulty Paying for Meds: No Currently Unemployed: No Education: Trade/Vocational Certificate Difficulty w/ Childcare or Family Care: No Living arrangements: with family Additional living arrangements comments: - [place], Daughter- Dayami Occupation/Education: occupation 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 Gender identity (if verbalized by the patient): Male Spiritual care concerns: No Exam Narrative: General appearance: Well-developed, well-nourished Skin: Normal color Head: Normocephalic, nontraumatic Eyes: Clear conjunctiva ENT: Oropharynx normal, ears normal, nose normal Neck: Supple, nontender Chest and respiratory: Airway patent, no respiratory distress, no accessory muscle use Heart: Regular rate/rhythm Abdomen: Soft, nontender, no organomegaly, quiet bowel sounds Vascular: Normal peripheral pulses, normal capillary refill. Musculoskeletal: Diffuse tenderness right shoulder, right elbow, no deformity, severe limited range of motion. Neurologic: Alert and oriented ?3, AUTOMATIC DOOR MECHANIC is normal as tested, no gross motor deficit Course Vital Signs Vital signs: Vital Signs Temperature 36.4 C 07/01/24 07:53 Pulse Rate 75 07/01/24 07:53 Respiratory Rate 16 07/01/24 07:53 Blood Pressure 133/57 L 07/01/24 07:53 Pulse Oximetry 98 07/01/24 07:53 Oxygen Delivery Room Air 07/01/24 07:53 Temperature 36.4 C 07/01/24 07:53 Pulse Rate 75 07/01/24 07:53 Respiratory Rate 16 07/01/24 07:53 Blood Pressure 133/57 L 07/01/24 07:53 Pulse Oximetry 98 07/01/24 07:53 Oxygen Delivery Room Air 07/01/24 07:53 Medical Decision Making Vital Signs Vital Signs: Vital Signs Temperature 36.4 C 07/01/24 07:53 Pulse Rate 75 07/01/24 07:53 Respiratory Rate 16 07/01/24 07:53 Blood Pressure 133/57 L 07/01/24 07:53 Pulse Oximetry 98 07/01/24 07:53 Oxygen Delivery Room Air 07/01/24 07:53 Temperature 36.4 C 07/01/24 07:53 Pulse Rate 75 07/01/24 07:53 Respiratory Rate 16 07/01/24 07:53 Blood Pressure 133/57 L 07/01/24 07:53 Pulse Oximetry 98 07/01/24 07:53 Oxygen Delivery Room Air 07/01/24 07:53 Imaging Data Radiologist's impression: Impressions Shoulder X-Ray 07/01/24 08:45 IMPRESSION: Moderate right acromioclavicular and mild glenohumeral osteoarthritis. Elbow X-Ray 07/01/24 08:47 IMPRESSION: 1. 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 No joint effusion or acute osseous abnormality. Critical Care Time Critical Care Time Critical Care Time: No Discharge Plan Discharge Clinical Impression: Shoulder sprain, Elbow sprain Patient Disposition: Home Condition: Stable Instructions: Elbow Sprain (ED), Shoulder Sprain (ED) Additional Instructions: Return if symptoms are worsening , call your family physician for appointment, take Tylenol as as needed for aches and pain, continue home medications. Patient Language: Swedish Prescriptions: New naproxen [Naprosyn] 500 mg tablet 500 mg PO BID PRN (Reason: pain) Qty: 14 0RF cyclobenzaprine 10 mg tablet 10 mg PO TID PRN (Reason: muscle spasm) Qty: 20 0RF No Action naproxen 500 mg tablet 500 mg PO BID Qty: 60 2RF Zyrtec 10 mg capsule 10 mg PO DAILY sildenafil [Viagra] 100 mg tablet 100 mg PO DAILY PRN (Reason: sexual activity) Qty: 30 3RF Rx Instructions: administer 30 minutes to 4 hours before activity cholecalciferol (vitamin D3) 75 mcg (3,000 unit) Tablet 75 mcg PO DAILY atorvastatin 20 mg tablet See Rx Instructions .ROUTE .COMPLEX Qty: 90 1RF Dose Instruction: TAKE 1 TABLET BY MOUTH DAILY Rx Instructions: TAKE 1 TABLET BY MOUTH DAILY fluticasone propionate [Flonase Allergy Relief] 50 mcg/actuation spray,suspension 2 spray intranasal DAILY Qty: 48 1RF Rx Instructions: administer into each nostril irbesartan-hydrochlorothiazide 300-12.5 mg tablet See Rx Instructions .ROUTE .COMPLEX Qty: 90 0RF Dose Instruction: TAKE 1 TABLET BY MOUTH DAILY Rx Instructions: TAKE 1 TABLET BY MOUTH DAILY Follow-up/Referrals: Fabrizio Brown MD [Primary Care Provider] - Stand Alone Forms: Work/School Release IP
--- OUTSIDE RECORDS SUMMARY | 2024-07-01 08:15 | XMS_ITS | Referral Summary ---
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
--- OUTSIDE RECORDS SUMMARY | 2024-07-01 08:15 | XMS_ITS | Clinical Summary ---
Author Organization [facility] Address [address] [place] [address] Care Team Providers Care Movie Shot Camera Operator Name Role Phone Maggie Ferguson MD Primary Care Provider Allergies Active Allergy Reactions Criticality Noted Date Comments Niacin Sweating Low 05/14/2020 Penicillins Hives Medium 05/14/2020 Social History Tobacco Use Types Packs/Day Years Used Date Smoking Tobacco: Never Assessed Personal Safety Answer Date Recorded Getting School Help Needed Not on file 05/05 Sex and Gender Information Value Date Recorded Sex Assigned at Not on file 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
--- OUTSIDE RECORDS SUMMARY | 2024-07-01 08:15 | XMS_ITS | Clinical Summary ---
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 FOR HB BILLS FOR SHANDA FOR PB [employer] Care Teams Protector Plate Attacher Relationship Specialty Start Date End Date Chase Ferguson MD [address] [place] [address] PCP - General FAMILY PRACTICE 03/10/19
== END 2024-07-01 10:06 | disposition home or self-care (01) ==
PROVIDERS: Emergency Provider Emergency Medicine; PCP Family Medicine
DX: S43.401A Unspecified sprain of right shoulder joint, initial encounter (principal); S53.401A Unspecified sprain of right elbow, initial encounter; E78.5 Hyperlipidemia, unspecified; M16.12 Unilateral primary osteoarthritis, left hip; I10 Essential (primary) hypertension; K21.9 Gastro-esophageal reflux disease without esophagitis; W01.0XXA Fall on same level from slipping, tripping and stumbling without subsequent striking against object, initial encounter
CPT/HCPCS: 73030; 73080; 99284

== ENCOUNTER 2024-08-03 12:44 | Outpatient (CLI) | payer OTHER, SELFPAY ==
--- NOTE | ~2024-08-03 | MR_ITS ---
MRI of the right shoulder Technique: Axial proton-density fat-sat images, coronal proton density fat-sat and T2 fat-sat images, and sagittal T1-weighted and T2 fat-sat images were acquired. Clinical History: Injury Findings: There is moderate to advanced AC joint degenerative change. There is prominent bony product josephine change of the distal clavicle. Coracoclavicular, coracoacromial, and coracohumeral ligaments are intact. There are complete, full-thickness tears involving the entirety of the supraspinatus and infraspinatu s tendons. Fluid-filled gap measures approximately 4.8 x 4.9 cm in extent. There is complete tearing of the distal transverse portion of the subscapularis tendon with medial dislocation of the biceps te ndon. Remainder of the subscapularis tendon demonstrates severe tendinosis. There is probable focal superior labral tear. Inferior glenohumeral ligament is intact. There is moderate glenohumeral joint effusion with fluid pa ssing through the rotator cuff defect into the subacromial/subdeltoid bursa. Humeral head is high rid ing. No degenerative change of the glenohumeral joint. There is edematous change of the infraspinatus muscle belly without definite atrophy.. Impression: Complete massive rotator cuff tear involving the entirety of the supraspinatus and infraspinatus tend ons, as detailed above. Complete tear of the distal transverse ligament portion of the subscapularis tendon with associated m edial dislocation of the biceps tendon. Suspected focal superior labral tear. Moderate to advanced AC joint degenerative change. Edematous change of the infraspinatus muscle belly. No definite fatty atrophy. Reviewed, dictated and finalized at location . Impression: Complete massive rotator cuff tear involving the entirety of the supraspinatus and infraspinatus tendons, as detailed above. Complete tear of the distal transverse ligament portion of the subscapularis te ndon with associated medial dislocation of the biceps tendon. Suspected focal superior labral tear. Moderate to advanced AC joint degenerative change. Edematous change of the infraspinatus muscle belly. No definite fatty atrophy.
--- OUTSIDE RECORDS SUMMARY | 2024-08-03 12:49 | XMS_ITS | Referral Summary ---
Author Organization [facility] Address [facility] [place] [address] Care Team Providers Care Carbonizer Name Role Phone Maggie Ferguson MD Primary Care Provider [phone] Allergies Active Allergy Reactions Criticality Noted Date Comments Niacin Sweating Low 05/14/2020 Penicillins Hives Medium 05/14/2020 Social History Tobacco Use Types Packs/Day Years Used Date Smoking Tobacco: Never Assessed Personal Safety Answer Date Recorded Getting School Help Needed Not on file 05/05 Sex and Gender Information Value Date Recorded Sex Assigned at Not on file 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
--- OUTSIDE RECORDS SUMMARY | 2024-08-03 12:50 | XMS_ITS | Clinical Summary ---
[facility] Organization [facility] Address [facility] [place] [address] Care Team Providers Care Beef Selector Name Role Phone Maggie Ferguson MD Primary Care Provider [phone] Allergies Active Allergy Reactions Criticality Noted Date Comments Niacin Sweating Low 05/14/2020 Penicillins Hives Medium 05/14/2020 Social History Tobacco Use Types Packs/Day Years Used Date Smoking Tobacco: Never Assessed Personal Safety Answer Date Recorded Getting School Help Needed Not on file 05/05 Sex and Gender Information Value Date Recorded Sex Assigned at Not on file 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
== END 2024-08-03 12:45 | disposition home or self-care (01) ==
PROVIDERS: PCP Family Medicine; Visit Provider Nurse Practitioner Family
DX: S49.91XA Unspecified injury of right shoulder and upper arm, initial encounter (principal); X58.XXXA Exposure to other specified factors, initial encounter
CPT/HCPCS: 73221

== ENCOUNTER 2025-01-09 08:22 | Outpatient (CLI) | payer BC, SELFPAY ==
--- OUTSIDE RECORDS SUMMARY | 2025-01-09 08:25 | XMS_ITS | Clinical Summary ---
[facility] Address [address] [place] [address] Care Team Providers Care Schedule Announcer Name Role Phone Maggie Ferguson MD Primary Care Provider [phone] Allergies Active Allergy Reactions Criticality Noted Date Comments Niacin Sweating Low 05/14/2020 Penicillins Hives Medium 05/14/2020 Social History Tobacco Use Types Packs/Day Years Used Date Smoking Tobacco: Never Assessed Personal Safety Answer Date Recorded Getting School Help Needed Not on file 05/05 Sex and Gender Information Value Date Recorded Sex Assigned at Not on file 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
[2025-01-09 11:46] LABS: Alanine Aminotransferase 40 U/L (6-50); Albumin Level 4.3 g/dL (3.5-5.1); Alkaline Phosphatase 96 U/L (38-126); Anion Gap 5 mmol/L (4-12); Aspartate Amino Transferase 54 U/L (17-59); Bilirubin,Total 0.8 mg/dL (0.2-1.3); Blood Urea Nitrogen 19 mg/dL (9-20); Calcium 9.5 mg/dL (8.4-10.2); Carbon Dioxide 27 mmol/L (22-30); Chloride 104 mmol/L (98-107); Cholesterol 125 mg/dL (0-200); Estimated Glomerular Filt Rate > 60; Glucose 93 mg/dL (65-110); HDL Direct 34 mg/dL; Potassium 4.3 mmol/L (3.4-5.0); Sodium 136 mmol/L (137-145); Total Protein 6.8 g/dL (6.3-8.2); Triglycerides 261 mg/dL (<150)
[2025-01-09 12:22] LABS: Prostate Specific Antigen 1.0 ng/mL (< OR = 4.0)
== END 2025-01-09 08:23 | disposition home or self-care (01) ==
LOC: ANHGOSHLAB 08:23
PROVIDERS: PCP Family Medicine; Visit Provider Family Medicine
DX: Z12.5 Encounter for screening for malignant neoplasm of prostate (principal); E78.5 Hyperlipidemia, unspecified
CPT/HCPCS: 36415; 80053; 80061; 84153; G0103